=== PATIENT | female | born 1975 | race Caucasian/White ===

== ENCOUNTER 2018-10-01 22:04 | Observation (INO) | payer OTHER ==
--- NOTE | 2018-10-01 22:49 | PDOC.FPRHP ---
- History of Present Illness Chief Complaint: Chest Pain History of Present Illness: Ms Velázquez is a 43yo female with pmh DMII, CAD s/p stents, HLD presenting as transfer from [facility] with chest pain that started Monday at 1700. Shortly before pain started her boyfriend of 18yrs broke up with her and she was crying. [place] like needles stabbing her, did not radiate and not associated with SOB, diaphoresis. Pain resolved with ASA and laying down and relaxing. She had return of chest pain while taking a bath on Monday. Pain felt the same at that time and resolved after a few minutes. She had return of pain today but this time it radiated to her neck. This concerned her enough to present to ED because she had the same feeling with prior chest pain that required stent placement. Pain resolved with Ativan at [place] [facility]. She denies dx of COPD, cough, sputum production, SOB. Reports she has had 78lb wt loss due to taking a higher dose of levothyroxine. Reports PCP has lowered dose to 125mcg but she has continued to take 150mcg. PCP: Dr Zaldivar ED Course: Ativan 1mg and ASA 324mg at OSH. Trops neg EKG no signs of acute ischemia - Allergies/Adverse Reactions Allergies Allergy/AdvReac Type Severity Reaction Status Date / Time Sulfa (Sulfonamide Allergy Severe Hives Verified 07/29/16 23:39 Antibiotics) - Home Medications Medication Instructions Recorded Confirmed Type Aspirin Chewable [Aspirin Chewable 81 mg PO DAILY #30 tab 07/31/16 08/17/16 Rx Tablet] Clopidogrel Bisulfate [Plavix] 75 mg PO DAILY #30 tab 07/31/16 08/17/16 Rx Metoprolol Tartrate [Lopressor] 12.5 mg PO BID #60 tab 07/31/16 08/17/16 Rx Rosuvastatin [Crestor] 10 mg PO HS 08/17/16 08/17/16 History Isosorbide Mononitrate [Imdur ER] 30 mg PO DAILY #30 tab 08/18/16 Rx - History PMHx: DMII, CAD s/p stents, hypothyroidism, HLD, GERD PSHx: Cardiac stent placement FHx: Father & Mother: DMII, HTN, HLD, CAD Social: Smokes ~3ppd for 16yrs. Denies alcohol or drug use. - Review of Systems General: reports: weight/appetite/sleep changes. denies: fever/chills Eyes: denies: eye pain, vision changes ENT: reports: nasal congestion. denies: rhinorrhea Respiratory: reports: congestion. denies: cough, shortness of breath Cardiovascular: reports: chest pain. denies: palpitation, edema Gastrointestinal: denies: nausea, vomiting, diarrhea, constipation, abdominal pain Genitourinary: denies: dysuria, other (hematuria) Skin: denies: rashes, lesions Musculoskeletal: denies: pain, swelling Neurological: denies: numbness, weakness Psychological: reports: other - Vital signs BP: 107/62 HR: 67 RR: 16 Tmax: 98.4 Pox: 97% on RA Wt: 86kg - Physical Exam Constitutional: NAD, awake, alert and oriented, well developed HEENT: normocephalic and atraumatic, conjunctiva clear, grossly normal hearing, MMM, oropharynx clear Neck: supple, trachea midline Heart: RRR, no murmurs/rubs/gallops Lungs: other (Diffuse expiratoy wheezing) Abdomen: soft, non-tender, bowel sounds present Musculoskeletal: normal structure, normal tone, ROM grossly normal Neurological: no focal deficit Skin: no rash/lesions, good turgor, capillary refill <2 seconds Psychiatric: normal mood and affect, good judgment and insight, intact recent and remote memory FMR H&P: Results - EKG Interpretation EK lead EKG shows normal sinus rhythm, Rate (beats per minute): 64, with no ectopics, Conduction normal, ST segments normal, T waves, T wave abnormality, consider anterior ischemia, [address] normal. - Radiology Interpretation Chest x-ray Status: report reviewed by me Additional comment: Mild left posterior basilar parenchymal opacity may represent atelectasis or infiltrate. Clinical correlation regarding other signs and symptoms of left posterior basilar pneumonitis is required FMR H&P: A/P - Problem List (1) Chest pain Current Visit: No Status: Acute Code(s): R07.9 - CHEST PAIN, UNSPECIFIED (2) Todd's thyroiditis Current Visit: Yes Status: Chronic Code(s): E06.3 - AUTOIMMUNE THYROIDITIS (3) DMII (diabetes mellitus, type 2) Current Visit: Yes Status: Chronic (4) HLD (hyperlipidemia) Current Visit: Yes Status: Chronic Code(s): E78.5 - HYPERLIPIDEMIA, UNSPECIFIED (5) (HFpEF) heart failure with preserved ejection fraction Current Visit: Yes Status: Chronic Code(s): I50.30 - UNSPECIFIED DIASTOLIC ( CONGESTIVE) HEART FAILURE (6) CAD (coronary artery disease) Current Visit: No Status: Chronic Code(s): I25.10 - ATHSCL HEART DISEASE OF [place] CORONARY ARTERY W/O ANG PCTRS (7) GERD (gastroesophageal reflux disease) Current Visit: No Status: Chronic Code(s): K21.9 - GASTRO-ESOPHAGEAL REFLUX DISEASE WITHOUT ESOPHAGITIS (8) Tobacco abuse Current Visit: No Status: Chronic Code(s): Z72.0 - TOBACCO USE (9) NANCY (obstructive sleep apnea) Current Visit: Yes Status: Chronic Code(s): G47.33 - OBSTRUCTIVE SLEEP APNEA (ADULT) (PEDIATRIC) - Plan Ms Velázquez is a 43yo female with pmh DMII, CAD s/p stents, HLD admitted for atypical chest pain Atypical Chest pain - Likely 2/2 anxiety as pt pain triggered by recent social stressor of breakup and pain relieved with Ativan vs ACS vs suspected COPD - Pt has hx of cardiac stent placement 2018 - HEART score: 4 - Trops neg x2 - Continue ASA - NPO, consider Stress test in AM, not currently ordered - Plan to contact pts assembler wet wash in [place]. Unclear why pt is still on Plavix as well as stent was placed >1yr ago - EKG for return of CP - Admit to tele Suspected COPD - Pt with 48pk yr smoking hx, expiratory wheezing on exam and appears to have hyperexpansion/flattened diaphragm on xray - Recommend spirometry outpt - Duonebs q4hr HFpEF - Echo 08/17/2016: EF 50-55%. II/III diastolic dysfunction - Does not appear fluid overloaded - Continue home meds - Strict I&Os, daily wt DMII - Continue home meds - Ordered A1c - CC diet once no longer NPO Hashimotos Thyroiditis - TSH ordered - Pt reports 78lb wt loss from taking too high dose (150mcg) - Will start pt at 125mcg which was recommended by pts PCP CAD s/p stents - Continue home meds - Manage as above HLD - Continue home Atorvastatin NANCY - Pt reports diagnosed by sleep study but does not have CPAP because "Sprinkler Driver did not fill out the paperwork for insurance to cover it" Tobacco Abuse - Encourage Cessation - Nicotine patch PRN Code Status: FULL DVT ppx: SCDs PCP: Kayley FMR H&P: Upper Level - Pertinent history 43 y/o F w/ PMHx of CAD w/ recent cath in 07/2017 w/ reported 70% blockage and stent x 2 placed in other vessels per patient. Notes that no PCI was done on the 70% blockage 2/2 insurance not covering it as it wasnt bad enough per patient presents for evaluation of chest pain since Monday night w/ worsening tonight prompting ER visit. Notes pain in L-upper chest w/ radiation into her sternum and neck similar to prior sxs during previous GA x 2. Pain described as sharp. Denies any associated SOB/diaphoresis. Sxs noted to start at rest. Improved w/ Ativan administration. No exacerbating factors. Pt notes she has been very stressed out recently. Risk factors of HLD, prior GA, Tobacco use, DM. Denies any fever/chills. - Pertinent findings CXR Mild L-basilar parynchymal opacity. Atelectasis vs infiltrate EKG NSR, no ST-segment changes noted Trop - <0.01 - <0.01 BUN 25 Cr 1.56 PE: GEN: NAD HEENT: Normocephalic/atraumatic. CARDS: RRR, no murmur, rubs, no gallops PULM: Scattered wheezes noted throughout. Good overall air movement - Plan Date/Time: 10/01/18 8838 Flaco Lopez. Yazan Sanchez MD, have evaluated this patient and agree with findings/plan as outlined by internal consultant resident. Pertinent changes/additions are listed here. 61 y/o F w/: 1. Atypical Chest Pain likely 2/2 Anxiety - Trop negative x2 and no concerning findings EKG - Cont. to trend trops and will plan to repeat EKG if pts pain returns - Admit to Tele obs - Will plan on performing cardiac stress test in the AM and contacting her Sprinkler Driver in [place] for further hx on patient . Her hx of insurance covering stent placement for a 70% blockage does not seem accurate to me - Cont. w/ ASA and statin - Check a TSH in setting of hypothyroidism 2. Likely COPD - Pt w/ scattered wheezes on exam and w/ flattening of diaphragm and hyperexpansion of lung peterson as seen on CXR consistent w/ disease in pt w/ sig. tobacco use hx - Will have PRN nebs available for patient - No change in cough or sputum production concerning for acute exacerbation and patient w/ normal O2 sats and resp rate/effort on exam - Recommend Spirometry as outpatient for further eval 3.Other Chronic Medical Problems Per Tube Bender Hand Notes Addendum - Attending - Attending Attestation Date/Time: 10/01/18 8922 I personally evaluated the patient and discussed the management with Dr. Henderson /Laura. I agree with the History, Examination, Assessment and Plan documented above with any addition or exceptions noted below. Patient with history of CAD s/p stenting in 2017 and echo showing grade II/III diastolic dysfunction here with chest pain. Reports pain in L side of chest with radiation to neck, similar to previous GA, that is worse with anxiety and improved with Ativan she received in ER earlier today. Reports that current pain complaint began at rest. She has had a lot of anxiety recently. Exam overall benign. Vitals stable. EKG does not show acute changes suggestive of myocardial ischemia. Labs reassuring, including negative troponins. Patient will be admitted for ACS r/o and risk stratification/ treatment modulations as needed. Consider stress testing as last heart cath apparently done near 2 years ago. Further mgmt per clinical course.
[2018-10-02 00:47] LABS: Troponin I Less than 0.010 ng/mL (< 0.028)
[2018-10-02 03:17] VITALS: BMI 30.2
[2018-10-02 05:29] LABS: Hemoglobin A1c 5.3 % (4.0-6.0)
[2018-10-02 05:33] LABS: Cardiac Risk 7.8 (Less than 4.5)
[2018-10-02 05:37] LABS: Troponin I Less than 0.010 ng/mL (< 0.028)
[2018-10-02] MEDS ORDERED: Levothyroxine Sodium 125 MCG TAB PO SCH (06:00)
[2018-10-02] MEDS ORDERED: Nicotine 21 MG PATCH TD SCH (06:00)
--- NOTE | 2018-10-02 06:58 | PDOC.EVN ---
Addendum - Attending - Attending Attestation Date/Time: 10/02/18 0657 I personally evaluated the patient and discussed the management with Dr. Davila. I agree with the History, Examination, Assessment and Plan documented in his progress note with any addition or exceptions noted below. Patient with history of CAD here with chest pain. She apparently had heart cath by outpatient cardiology just over 1 year ago. Her enzymes have been negative. Will discuss today with picker tender the utility of any further testing while here versus outpatient follow up. Elevated TG levels and will need modulation of her HLD therapy and diet counselling.
[2018-10-02 08:07] VITALS: BP 110/63; TEMP 98.6
--- NOTE | 2018-10-02 08:39 | PDOC.FM ---
- Subjective Subjective: This morning patient is tearful during discussion regarding her recent breakfup with long-term boyfriend. she states that she is not having any chest pain. She states that she has had cough for aboutr 2-3 days but no wheezing. She does not feel short of breath. She states she does not want to do a chemical stress but would prefer an exercise stress. - Objective Vital Signs & Weight: Vital Signs (12 hours) Temp Pulse Resp BP Pulse Ox 10/02/18 07:52 98.6 F 60 18 110/63 98 10/02/18 02:23 97.7 F 62 18 118/68 99 Weight Weight 84.912 kg I&O: 10/01/18 10/02/18 10/03/18 06:59 06:59 06:59 Intake Total 240 Balance 240 Phys Exam - Physical Examination Constitutional: NAD HEENT: PERRLA, moist MMs Neck: no nodes, full ROM expiratory wheezes bilaterally Cardiovascular: RRR, no significant murmur, no rub Gastrointestinal: soft, non-tender, no distention, positive bowel sounds Musculoskeletal: no edema, pulses present Neurological: non-focal, moves all 4 limbs Psychiatric: normal affect, A&O x 3 Skin: no rash, cap refill <2 seconds Dx/Plan (1) DMII (diabetes mellitus, type 2) Status: Chronic (2) HLD (hyperlipidemia) Code(s): E78.5 - HYPERLIPIDEMIA, UNSPECIFIED Status: Chronic (3) NANCY (obstructive sleep apnea) Code(s): G47.33 - OBSTRUCTIVE SLEEP APNEA (ADULT) (PEDIATRIC) Status: Chronic (4) CAD (coronary artery disease) Code(s): I25.10 - ATHSCL HEART DISEASE OF [place] CORONARY ARTERY W/O ANG PCTRS Status: Chronic (5) GERD (gastroesophageal reflux disease) Code(s): K21.9 - GASTRO-ESOPHAGEAL REFLUX DISEASE WITHOUT ESOPHAGITIS Status: Chronic (6) Tobacco abuse Code(s): Z72.0 - TOBACCO USE Status: Chronic - Plan Plan: Ms Velázquez is a 43yo female with pmh DMII, CAD s/p stents, HLD admitted for atypical chest pain Atypical Chest pain, hx of CAD w/ stents x2 - likely 2/2 anxiety but cannot r/o CAD 2/2 strong history - will pursue exercise stress - no chest pain this AM - Cath in Jul 2017 showed 70% stenosis per pt HLD - increase to high intensity statin - cont fenofibrate Suspected COPD - 2+ ppd smoker for 16 yrs, rec'd spirometry, pulm f/u on d/c - Duonebs q4hr HFpEF not in acute exacerbation - Echo 08/17/2016: EF 50-55%. II/III diastolic dysfunction - Continue home meds - Strict I&Os, daily wt DMII - Continue home meds - A1c 5.2 Hashimotos Thyroiditis - TSH 0.15 - Pt reports 78lb wt loss from taking too high dose (150mcg) - Will start pt at 125mcg which was recommended by pts PCP, rec'd this dose upon d/c NANCY -f/u with PCP to pursue cpap Tobacco Abuse - Encourage Cessation - Nicotine patch PRN Code Status: FULL DVT ppx: SCDs PCP: Kayley Dispo: pending stress test
[2018-10-02] MEDS ORDERED: Clopidogrel Bisulfate 75 MG TAB PO SCH (09:00)
[2018-10-02] MEDS ORDERED: Fish Oil 1,000 MG CAP PO SCH (09:00)
[2018-10-02] MEDS ORDERED: Furosemide 80 MG TAB PO SCH (09:00)
[2018-10-02] MEDS ORDERED: Famotidine 20 MG TAB PO SCH (09:00)
[2018-10-02] MEDS ORDERED: Aspirin Chewable 81 MG TAB PO SCH (09:00)
[2018-10-02] MEDS ORDERED: Alogliptin 25 MG TAB PO SCH (09:00)
[2018-10-02] MEDS ORDERED: Non-Formulary Item 1 EACH (Ranitidine Hcl [Ranitidine Hcl] 150 MG) PO SCH (09:00)
--- NOTE | 2018-10-02 13:24 | NM ---
MYOCARDIAL PERFUSION SCAN: Date: 10/02/18 The patient was given 10 mCi of technetium sestamibi for rest imaging and 31 mCi for stress imaging. Patient was stressed with exercise according to Edis protocol. INDICATION: Chest pain. Left ventricle was imaged with SPECT imaging and projected in 3 planes. Attenuation correction images obtained. FINDINGS: Left ventricular activity is symmetric on stress and rest images. No evidence of reversible ischemia. Wall motion appears normal. Ejection fraction recorded at 52%. IMPRESSION: No evidence of reversible ischemia. POS: KELLY
--- NOTE | 2018-10-02 15:48 | DIS ---
DATE OF ADMISSION: 10/02/2018 DATE OF DISCHARGE: 10/02/2018 RESIDENT: Mikal Davila MD ADMITTING ATTENDING: Jorge Sharma MD DISCHARGE ATTENDING: Jorge Sharma MD CONSULTS: None. PROCEDURES: Exercise stress test with nuclear medicine shows no reversible ischemia. PRIMARY DIAGNOSIS: Chest pain rule out. SECONDARY DIAGNOSES: History of coronary artery disease with stents x2, hyperlipidemia, suspected chronic obstructive pulmonary disease, heart failure with preserved ejection fraction, not in acute exacerbation, diabetes mellitus type 2 , Todd's thyroiditis, obstructive sleep apnea, tobacco abuse, anxiety. DISCONTINUED MEDICATIONS: None. HISTORY OF PRESENT ILLNESS/HOSPITAL COURSE: This is a 43-year-old female with past medical history including diabetes type 2, coronary artery disease status post stents x2, hyperlipidemia, presenting with atypical chest pain. The patient states that the pain started on Monday after she broke up with her long-time boyfriend of 18 years. The pain was described as a needle stabbing in the chest, did not radiate, was not associated with shortness of breath or diaphoresis. The pain resolved with aspirin and relaxation. She had the pain on Monday and then again on Monday and then once again on Monday and so she decided to come in for evaluation. The pain did resolve with Ativan at the [facility]. The patient had an exercise stress test with nuclear imaging during the stay, which showed no reversible ischemia. The patient stated that the pain had totally resolved by the morning of admission. The patient admitted that she had been taking more levothyroxine than prescribed by her PCP in order to help with losing weight. She was taking 150 mcg daily when she was prescribed 125 mcg. 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 The patient admits to smoking 2 to 3 packs of cigarettes a day for the past 16 years or so. She works at the [employer] 10.5 hours a day. Ultimately, the patient was discharged but she will need extensive followup. She will need to follow up with her manager grocery in one week. The patient should have spirometry to eval for COPD. The patient reportedly had a sleep study and said that she needed CPAP, but did not get a script from her manager grocery. The patient will need appropriate CPAP. The patient is to follow up with PCP and re-discuss the dosage of levothyroxine. The TSH here in the hospital was 0.15. The patient decided she is going to quit smoking during this hospitalization. She wanted to use Chantix, this was sent to the pharmacy. The patient should also be referred for counseling. DISPOSITION: Stable. DISCHARGE INSTRUCTIONS: 1. Location: Home. 2. Diet: Regular diet. 3. Activity: As tolerated. 4. Followup: Cardiology in 1 week. Pulmonology eval for COPD, spirometry. PCP , follow up on smoking cessation. Hypothyroidism. The patient should be referred for long-term counseling as well as elementary school social worker. sheltered workshop worker is working to assist with child care development specialist options. Job ID: [id number] UNITED HEALTH SERVICESDariela
[2018-10-02] MEDS ORDERED: Atorvastatin Calcium 20 MG TAB PO SCH (21:00)
[2018-10-02] MEDS ORDERED: Non-Formulary Item 1 EACH (Fenofibrate [Fenofibrate] 160 MG) PO SCH (21:00)
[2018-10-02] MEDS ORDERED: Atorvastatin Calcium 40 MG TAB PO SCH (21:00)
[2018-10-02] MEDS ORDERED: Fenofibrate Nanocrystallized 145 MG TAB PO SCH (21:00)
--- NOTE | 2018-10-06 20:53 | EKG ---
Test Reason : Blood Pressure : / mmHG Vent. Rate : 064 BPM Atrial Rate : 064 BPM P-R Int : 156 ms QRS Dur : 108 ms QT Int : 442 ms P-R-T Axes : 031 075 056 degrees QTc Int : 455 ms Normal sinus rhythm T wave abnormality, consider anterior ischemia Abnormal ECG Confirmed by YENIFER SESAY DO ([id number]), science editor TODD MACHUCA ([id number]) on 10/06/2018 8:53:08 PM Referred By: Confirmed By:YENIFER SESAY DO
== END 2018-10-02 16:54 | disposition home or self-care (01) ==
LOC: ERS 22:04 → 2SW 10-02 02:25
PROVIDERS: ADMIT Student in an Organized Health Care Education/Training Program; ATTEND Student in an Organized Health Care Education/Training Program
DX: R07.89 Other chest pain (principal); I11.0 Hypertensive heart disease with heart failure; I50.32 Chronic diastolic (congestive) heart failure; I25.10 Atherosclerotic heart disease of native coronary artery without angina pectoris; E78.5 Hyperlipidemia, unspecified; E11.9 Type 2 diabetes mellitus without complications; E03.9 Hypothyroidism, unspecified; E06.3 Autoimmune thyroiditis; K21.9 Gastro-esophageal reflux disease without esophagitis; F17.210 Nicotine dependence, cigarettes, uncomplicated; G47.33 Obstructive sleep apnea (adult) (pediatric); F41.9 Anxiety disorder, unspecified; Z88.2 Allergy status to sulfonamides; Z95.5 Presence of coronary angioplasty implant and graft; Z79.84 Long term (current) use of oral hypoglycemic drugs; Z79.82 Long term (current) use of aspirin; Z79.899 Other long term (current) drug therapy
CPT/HCPCS: 36415; 78452; 80061; 83036; 84443; 84484; 93005; 93017; A9500; G0378